=== PATIENT | male | born 1940 | race Two or more races ===

== ENCOUNTER 2017-11-25 11:45 | Inpatient (IN) | payer OTHER, MEDICARE ==
[~2017-11-25] VITALS: Ht 172.7 cm; Wt 76.9 kg
[2017-11-25 12:18] LABS: HEMATOCRIT 30.2 % (38.0-50.0); HEMOGLOBIN 10.1 G/DL (12.5-16.6); MCHC 33.4 G/DL (30.0-36.0); MCV 95.6 FL (86-99); PLATELET COUNT 141 K/uL (156-360); RBC DIS.WIDTH-CV 14.6 % (11.8-14.6); RBC DIS.WIDTH-SD 51.8 % (39-53); RED BLOOD COUNT 3.16 M/uL (4.00-5.50); WHITE BLOOD COUNT 7.8 K/uL (4.1-10.2)
[2017-11-25 12:30] LABS: CHLORIDE 109 mEq/L (99-109); POTASSIUM 4.8 mEq/L (3.7-5.4); SODIUM 141 mEq/L (136-147)
[2017-11-25 12:31] LABS: GLUCOSE 212 mg/dL (70-99)
[2017-11-25 12:35] LABS: CREATININE 1.8 mg/dL (0.6-1.3); GFR ESTIMATE (CALCULATED) 39 mL/min/ (58.99-99999)
[2017-11-25 12:36] LABS: UREA NITROGEN (BUN) 37 mg/dL (9-23)
[2017-11-25 12:40] LABS: TROP-I INTERPRETATION NEGATIVE; TROPONIN-I 0.02 ng/mL (0.0-0.30)
[2017-11-25] MEDS ORDERED: LIPITOR40 MG PO (17:02)
[2017-11-25] MEDS ORDERED: DAILY VITE1 EAC1 PO (17:04)
[2017-11-25] MEDS ORDERED: ELIQUIS5 M1 PO (17:05)
[2017-11-25] MEDS ORDERED: PROZAC10 MG PO (17:06)
[2017-11-25] MEDS ORDERED: AMARYL4 MG PO (17:07)
[2017-11-25] MEDS ORDERED: ZESTRIL40 MG PO (17:08)
[2017-11-25] MEDS ORDERED: K-DUR20 MEQ PO (17:09)
[2017-11-25] MEDS ORDERED: CALAN120 MG PO (17:12)
[2017-11-25] MEDS ORDERED: CLOTRIMAZOLE AF15 G2 TP (17:13)
[2017-11-25 19:20] VITALS: BP 186/123
[2017-11-25 21:02] VITALS: BP 139/88
[2017-11-26] VITALS (7 sets, daily range): BP systolic 140–176; BP diastolic 80–102
[2017-11-27 03:40] VITALS: BP 164/88
[2017-11-27 08:12] VITALS: BP 192/102
[2017-11-27 09:59] VITALS: BP 182/96
[2017-11-27 11:43] VITALS: BP 178/88
[2017-11-27 14:29] VITALS: BP 168/82
[2017-11-27 20:12] VITALS: BP 144/91
[2017-11-28] VITALS (9 sets, daily range): BP systolic 160–220; BP diastolic 79–110
[2017-11-29] VITALS (7 sets, daily range): BP systolic 134–176; BP diastolic 71–81
[2017-11-29 06:40] LABS: CHLORIDE 105 MEQ/L (99-109); CREATININE 1.9 MG/DL (0.6-1.3); GFR ESTIMATE (CALCULATED) 37 mL/min/ (58.99-99999); GLUCOSE 172 mg/dL (70-99); SODIUM 144 MEQ/L (136-147); UREA NITROGEN (BUN) 48 mg/dL (9-23)
[2017-11-29 06:42] LABS: POTASSIUM 3.8 MEQ/L (3.7-5.4)
[2017-11-29] MEDS ORDERED: HYDRALAZINE HCL50 MG PO (16:55)
[2017-11-29] MEDS ORDERED: LOPRESSOR25 MG PO (17:00)
[2017-11-29] MEDS ORDERED: FUROSEMIDE20 MG PO (17:00)
[2017-11-29] MEDS ORDERED: JANUVIA100 MG PO (17:00)
[2017-11-30 04:51] VITALS: BP 151/79
[2017-11-30 07:18] VITALS: BP 169/81
[2017-11-30 11:12] VITALS: BP 165/80
== END 2017-11-30 14:33 | disposition home or self-care (01) | DRG 310 ==
LOC: EME → EDBD 11:45 → 4EAST 14:49 → EDOF 14:49 → ENRESERV 15:14 → 4EAST 19:24
PROVIDERS: Emergency Medicine; Internal Medicine
DX: R00.1 Bradycardia, unspecified (principal); T46.1X5A Adverse effect of calcium-channel blockers, initial encounter; I49.5 Sick sinus syndrome; I48.2 Chronic atrial fibrillation; I12.9 Hypertensive chronic kidney disease with stage 1 through stage 4 chronic kidney disease, or unspecified chronic kidney disease; N18.3 Chronic kidney disease, stage 3 (moderate); G30.9 Alzheimer's disease, unspecified; F02.80 Dementia in other diseases classified elsewhere, unspecified severity, without behavioral disturbance, psychotic disturbance, mood disturbance, and anxiety; E11.22 Type 2 diabetes mellitus with diabetic chronic kidney disease; F32.9 Major depressive disorder, single episode, unspecified
CPT/HCPCS: 70450; 71045; 80048; 82948; 84443; 84484; 85027; 87641; 93005; 93306; 99281; 99285; J1815

== ENCOUNTER 2017-12-21 18:33 | Emergency (ER) | payer OTHER, MEDICARE ==
[~2017-12-21] VITALS: Ht 172.7 cm; Wt 75.8 kg
[~2017-12-21 18:33] MED LIST: AMARYL4 MG PO; CALAN120 MG PO; CLOTRIMAZOLE AF15 G2 TP; DAILY VITE1 EAC1 PO; ELIQUIS5 M1 PO; FUROSEMIDE20 MG PO; HYDRALAZINE HCL50 MG PO; JANUVIA100 MG PO; K-DUR20 MEQ PO; LIPITOR40 MG PO; LOPRESSOR25 MG PO; PROZAC10 MG PO; ZESTRIL40 MG PO
[2017-12-21 19:03] LABS: APPEARANCE CLEAR ((CLEAR)); BILIRUBIN NEGATIVE; BLOOD NEGATIVE; COLOR STRAW ((YELLOW)); GLUCOSE (STRIP) >=500; KETONES NEGATIVE; LEUKOCYTES NEGATIVE; NITRITE NEGATIVE; PROTEIN (STRIP) 100; SPECIFIC GRAVITY 1.024 (1.000-1.030); UROBILINOGEN 0.2 MG/DL (0.2-1.0)
[2017-12-21 19:06] LABS: BACTERIA NONE SEEN /HPF; EPITHELIAL CELLS NONE SEEN /HPF; MUCUS NONE SEEN /LPF; RED BLOOD CELLS 0-5 /HPF (0-5); UCUL ADDED? NO; WHITE BLOOD CELLS 0-5 /HPF (0-5)
[2017-12-21 19:07] LABS: HEMATOCRIT 33.5 % (38.0-50.0); HEMOGLOBIN 11.3 G/DL (12.5-16.6); MCH 31.4 PG (29.0-34.0); MCHC 33.7 G/DL (30.0-36.0); MCV 93.1 FL (86-99); PLATELET COUNT 144 K/uL (156-360); RBC DIS.WIDTH-CV 13.6 % (11.8-14.6); RBC DIS.WIDTH-SD 46.5 % (39-53); WHITE BLOOD COUNT 5.3 K/uL (4.1-10.2)
[2017-12-21 19:17] LABS: CHLORIDE 99 mEq/L (99-109); POTASSIUM 4.2 mEq/L (3.7-5.4); SODIUM 136 mEq/L (136-147)
[2017-12-21 19:23] LABS: GFR ESTIMATE (CALCULATED) 35 mL/min/ (58.99-99999)
[2017-12-21 19:24] LABS: UREA NITROGEN (BUN) 32 mg/dL (9-23)
[2017-12-21 19:25] LABS: GLUCOSE 749 mg/dL (70-99)
[2017-12-21 23:06] VITALS: BP 173/88
[2017-12-22] MEDS ORDERED: APRESOLINE25 MG PO (18:39)
[2017-12-22] MEDS ORDERED: NORVASC10 MG PO (18:43)
== END 2017-12-21 23:06 | disposition home or self-care (01) ==
LOC: EME → EDBD 18:33 → EME 23:06
PROVIDERS: Emergency Medicine
DX: E11.65 Type 2 diabetes mellitus with hyperglycemia (principal); E86.0 Dehydration; I10 Essential (primary) hypertension; Z79.01 Long term (current) use of anticoagulants
CPT/HCPCS: 80048; 81003; 82948; 85027; 99281; 99285

== ENCOUNTER 2017-12-22 14:08 | Inpatient (IN) | payer OTHER, MEDICARE ==
[~2017-12-22] VITALS: Ht 165.1 cm; Wt 79.9 kg
[2017-12-22 15:09] LABS: BASOPHIL (%) 0.3 % (0-1); EOSINOPHIL (%) 3.2 % (0-5); EOSINOPHIL COUNT 0.2 K/uL (0-0.3); HEMOGLOBIN 11.2 G/DL (12.5-16.6); IMMATURE GRANULOCYTE (%) 0.3 % (0.0-0.7); LYMPHOCYTE (%) 12.9 % (15-42); LYMPHOCYTE COUNT 0.8 K/uL (1.0-2.8); MCH 31.2 PG (29.0-34.0); MCHC 33.9 G/DL (30.0-36.0); MCV 91.9 FL (86-99); MONOCYTE (%) 6.8 % (3-12); MONOCYTE COUNT 0.4 K/uL (0-0.8); NEUTROPHIL (%) 76.5 % (45-76); PLATELET COUNT 143 K/uL (156-360); RBC DIS.WIDTH-CV 13.3 % (11.8-14.6); RBC DIS.WIDTH-SD 45.4 % (39-53); RED BLOOD COUNT 3.59 M/uL (4.00-5.50); WHITE BLOOD COUNT 6.5 K/uL (4.1-10.2)
[2017-12-22 15:12] LABS: CARBON DIOXIDE (BICARBONATE) 33.3 MEQ/L (20-31); CHLORIDE 100 mEq/L (99-109); POTASSIUM 3.8 mEq/L (3.7-5.4); SODIUM 137 mEq/L (136-147)
[2017-12-22 15:14] LABS: GLUCOSE 622 mg/dL (70-99)
[2017-12-22 15:18] LABS: CREATININE 1.9 mg/dL (0.6-1.3); GFR ESTIMATE (CALCULATED) 37 mL/min/ (58.99-99999)
[2017-12-22 15:19] LABS: UREA NITROGEN (BUN) 26 mg/dL (9-23)
[2017-12-22 15:30] LABS: APPEARANCE CLEAR ((CLEAR)); BILIRUBIN NEGATIVE; BLOOD NEGATIVE; COLOR STRAW ((YELLOW)); GLUCOSE (STRIP) >=500; KETONES NEGATIVE; LEUKOCYTES NEGATIVE; NITRITE NEGATIVE; PROTEIN (STRIP) 100; SPECIFIC GRAVITY 1.023 (1.000-1.030); UROBILINOGEN 0.2 MG/DL (0.2-1.0)
[2017-12-22 15:59] LABS: BACTERIA NONE SEEN /HPF; EPITHELIAL CELLS NONE SEEN /HPF; MUCUS NONE SEEN /LPF; WHITE BLOOD CELLS NONE SEEN /HPF (0-5)
[2017-12-22] MEDS ORDERED: APRESOLINE25 MG PO (18:39)
[2017-12-22] MEDS ORDERED: NORVASC10 MG PO (18:43)
[2017-12-22 20:48] VITALS: BP 160/85
[2017-12-23 03:41] VITALS: BP 159/81
[2017-12-23 04:33] LABS: C DIFF TOXIN NEGATIVE (NEGATIVE)
[2017-12-23 06:52] LABS: CHLORIDE 106 MEQ/L (99-109); POTASSIUM 3.3 MEQ/L (3.7-5.4); UREA NITROGEN (BUN) 20 mg/dL (9-23)
[2017-12-23 06:55] LABS: CREATININE 1.2 MG/DL (0.6-1.3); GLUCOSE 77 mg/dL (70-99)
[2017-12-23 06:56] LABS: GFR ESTIMATE (CALCULATED) > 59 mL/min/ (58.99-99999); SODIUM 144 MEQ/L (136-147)
[2017-12-23 07:24] VITALS: BP 179/90
[2017-12-23 12:07] VITALS: BP 171/84
[2017-12-23 15:30] VITALS: BP 153/86
[2017-12-23 20:00] VITALS: BP 183/88
[2017-12-23 23:43] VITALS: BP 180/86
[2017-12-24 04:41] VITALS: BP 182/91
[2017-12-24 06:44] LABS: CHLORIDE 105 MEQ/L (99-109); CREATININE 1.4 MG/DL (0.6-1.3); GFR ESTIMATE (CALCULATED) 53 mL/min/ (58.99-99999); GLUCOSE 80 mg/dL (70-99); SODIUM 143 MEQ/L (136-147); UREA NITROGEN (BUN) 22 mg/dL (9-23)
[2017-12-24 07:55] VITALS: BP 140/90
[2017-12-24 11:20] VITALS: BP 158/84
[2017-12-24 15:12] VITALS: BP 179/89
[2017-12-24 19:58] VITALS: BP 189/86
[2017-12-24 23:35] VITALS: BP 152/82
[2017-12-25 04:50] VITALS: BP 145/72
[2017-12-25 08:28] VITALS: BP 148/80
[2017-12-25 11:35] VITALS: BP 171/68
[2017-12-25] MEDS ORDERED: LOPRESSOR25 MG PO (14:25)
[2017-12-25] MEDS ORDERED: HYDRALAZINE HCL25 MG PO ×2 (14:25→14:31)
[2017-12-25] MEDS ORDERED: LEVEMIR100 UNIT/2 SC (14:27)
[2017-12-25] MEDS ORDERED: NOVOLOG 10100 UNITS/ SC (14:28)
[2017-12-25 15:38] VITALS: BP 168/80
[2017-12-25 19:26] VITALS: BP 143/61
[2017-12-25 23:56] VITALS: BP 145/70
[2017-12-26 03:00] VITALS: BP 158/90
[2017-12-26 07:34] VITALS: BP 160/88
== END 2017-12-26 11:32 | disposition home or self-care (01) | DRG 639 ==
LOC: EME 14:08 → 3EAST 17:50 → EDOF 17:50 → ENRESERV 18:06 → 3EAST 20:29
PROVIDERS: Emergency Medicine; Internal Medicine
DX: E11.65 Type 2 diabetes mellitus with hyperglycemia (principal); I48.2 Chronic atrial fibrillation; I12.9 Hypertensive chronic kidney disease with stage 1 through stage 4 chronic kidney disease, or unspecified chronic kidney disease; E11.22 Type 2 diabetes mellitus with diabetic chronic kidney disease; N18.3 Chronic kidney disease, stage 3 (moderate); I49.5 Sick sinus syndrome; E87.6 Hypokalemia; G30.9 Alzheimer's disease, unspecified; F02.80 Dementia in other diseases classified elsewhere, unspecified severity, without behavioral disturbance, psychotic disturbance, mood disturbance, and anxiety; Z66 Do not resuscitate; Z87.891 Personal history of nicotine dependence; Z79.01 Long term (current) use of anticoagulants
CPT/HCPCS: 71045; 80048; 81003; 82010; 82803; 82948; 85025; 87493; 93005; 99281; 99285; J1815; J2060; J7030